=== PATIENT | female | born 1945 | race Hispanic/Latino ===

== ENCOUNTER 2016-10-13 16:07 | Observation (INO) | payer SELFPAY ==
[~2016-10-13] VITALS: Ht 152.4 cm; Wt 64.3 kg
--- NOTE | 2016-10-13 16:28 | ED.REPORT ---
HPI-Chest Pain 40 and Over Date of Service Oct 13, 2016 ED Provider: Dr. Jacek Jalloh MD A 71 year old female with a history of hypertension presents to the ED via EMS with heart palpitations that began just prior to arrival. Associated symptoms include visual disturbances, headache, dizziness, chest pain, and one episode of emesis. The patient has experienced similar symptoms during her previous hypertensive episodes. En route, EKG revealed a narrow complex with a rate in the 180's. She cardioverted to normal sinus following 6 mg of Adenosine. The patient has also been experiencing a sore throat for the past week. Patient denies any recent fever, chills, or dysuria. She denies history of thyroid disease. Nursing Notes Stated Complaint: ARRHYTHMIA Chief Complaint: Dysrhythmia/Cardiac Nursing Notes Reviewed: Yes Allergies: Coded Allergies: No Known Allergies (Unverified , 10/13/16) No Active Prescriptions or Reported Meds General Time Seen by MD: 16:28 Chief Complaint Other (Heart Palpitations) Hx Obtained From: Patient Arrived By: Ambulance Sudden in Onset?: No Onset Occurred: Just prior to arrival Symptom Duration: Since onset Associated with: Reports: Palpitations Pertinent Negative: Pt denies other symptoms Recent Healthcare: No recent doctor visit, No recent hospitalization Risk Factors )( CAD Risk Stratification Risk factors reviewed )( TAD Risk Stratification Risk factors reviewed )( PE Risk Stratification Risk factors reviewed Past Medical History Past Medical History Hypertension Previous infarct Past Surgical History None reported. Family History Non-contributory Denies history of cardiac disease Smoking History Unknown if Ever Smoker Social History Other Social History: Good social support, Local resident Ambulatory Status Independent Review of Systems Constitutional: Denies: Chills, Fever Cardiovascular: Reports: Chest pain, Palpitations GI: Reports: Vomiting Neurologic: Reports: Dizziness, Headache, Vision change Complete sys rev & neg: except as marked. Ears / Nose / Throat: Reports: Sore throat Female: Denies: Dysuria Physical Exam Initial Vital Signs Vital Signs (First) Date Time Temp Pulse Resp B/P Pulse Ox O2 Delivery O2 Flow Rate FiO2 10/13/16 16:29 36.6 91 22 134/77 97 Room Air Initial VS: Reviewed Head / Eyes: Atraumatic, Normocephalic, PERRL Neck: Supple, Non-tender, Full range of motion Extremities: Vascular intact, Neuro intact, No swelling, No tenderness Skin: Warm, Dry, No cyanosis Neurologic: Alert, Oriented, Nonfocal Psychiatric: Mood/affect normal, Behavior normal, Normal thought content General/Constitutional: Awake, Alert, No acute distress Respiratory / Chest: Atraumatic, Breath sounds NL, Breath sounds = bilat, No respiratory distress Cardiovascular: Heart rate NL, Regular rhythm, Heart sounds NL Abdomen: Atraumatic, Soft, Non-tender Interpretation & Diagnostics Lab Results Interpretation Result Diagram: 10/13/16 1629 10/13/16 1629 Test 10/13/16 16:29 10/13/16 19:39 White Blood Count 7.4th/mm3 (3.8-10.1) Red Blood Count 4.58mil/mm3 (3.90-5.20) Hemoglobin 13.4g/dL (12.0-15.6) Hematocrit 40.2% (35.0-46.0) Mean Corpuscular Volume 87.8fL (81-100) Mean Corpuscular Hemoglobin 29.3pg (27.0-35.0) Mean Corpuscular Hemoglobin Concent 33.3% (32.0-37.0) Red Cell Distribution Width 13.9% (12.3-15.4) Platelet Count 241bil/L (150-400) Neutrophils (%) (Auto) 71.1% (40-74) Lymphocytes (%) (Auto) 21.5% (14-46) Monocytes (%) (Auto) 4.8% (4-12) Eosinophils (%) (Auto) 2.2% (0-5) Basophils (%) (Auto) 0.3% (0-3) Sodium Level 140mEq/L (134-144) Potassium Level 3.9mEq/L (3.5-5.2) Chloride Level 103mEq/L (97-108) Carbon Dioxide Level 21mmol/L (18-29) Blood Urea Nitrogen 13mg/dL (8-27) Creatinine 0.59mg/dL (0.57-1.00) Estimat Glomerular Filtration Rate 144mL/min (>59) Glucose Level 114mg/dL (60-99) Calcium Level 9.0mg/dL (8.5-10.1) Magnesium Level 2.0mg/dL (1.6-2.6) Total Bilirubin 0.2mg/dL (0.0-1.2) Aspartate Amino Transf (AST/SGOT) 20U/L (0-50) Alanine Aminotransferase (ALT/SGPT) 10U/L (0-32) Alkaline Phosphatase 75U/L (25-165) Total Protein 7.6g/dL (6.4-8.4) Albumin 4.1g/dL (3.4-5.0) Troponin T 0.071ug/L (0.0-0.011) Pulse Oximetry Interpretation Pulse Oximetry: Pulse Ox normal (97%), On room air ECG Interpretation ECG Interpretation: Sinsu rhythm Rate 80 bpm Time: 16:38 Interpreted by: ED physician Rhythm Strip Interpretation : Time: 16:52 Rhythm Strip Interpretation: Interpreted by me, Rate (80 bpm), Normal sinus rhythm X-Ray Chest Interpretation Chest Xray Interpretation: IMPRESSION: Left basilar infiltrate. A lateral view is recommended. Dictated by: Shirin Mcmillan M.D. on 10/13/2016 at 16:47 Interpretation / Wet Read by: Interpret - Radiologist Re-Eval/Medical Decision Time of Eval: 17:03 Patient Status: Condition improved Re-Evaluation/Progress Note: Patient condition is re-evaluated. symptoms have improved following treatment. Patient passes the road test. She is informed of her current results and the intended treatment plan. All of the patient's questions about her likely diagnosis and disposition are addressed. Time of Eval: 20:37 Patient Status: Condition improved Re-Evaluation/Progress Note: Patient is informed of her elevated troponin and the plan to admit. She understands and agree with the plan. Code status is discussed in the presence of family. Patient would like to be Full Code. Consultation #1: Referral / Consult Name: Scout Dhillon MD Consulted With: Cardiology Call Returned at: 19:40 Airplane Technician: Agrees with eval, Agrees with plan Note: Discussed patient condition. Agrees with the intended treatment plan. Consultation #2: Referral / Consult Name: Gaviota Olivier DO Consulted With: [employer] Call Returned at: 21:25 Airplane Technician: Will see patient, Agrees with eval, Agrees with plan, Accepts admit Counseled Regarding: Diagnosis, Lab results, Need for admission Discharge & Departure Primary Impression: Supraventricular tachycardia Additional Impression: Elevated troponin Disposition: ADMITTED TO HOSPITAL Discharge Condition All VS Reviewed: Yes Condition: Stable Referrals: Jamie Jaffe MD [facility] Scribe Attestation Portions of this note were transcribed by Lizbeth Mccord. Dr. Shubham Fofana personally performed the history, physical exam and medical decision-making; I reviewed and confirmed the accuracy of the information in the transcribed note. Jacek Jalloh DO Oct 13, 2016 16:28 LIZBETH MCCORD Oct 13, 2016 16:31 Por favor volver al servicio de urgencias para cualquier nuevas o que empeora las condiciones incluyendo cualquier fiebre, escalofros, nuseas, vmitos, dolor en el pecho, dificultad para respirar, sudoracin excesiva, mareos, debilidad o cualquier otro referente a los sntomas. Referrals: Jamie Jaffe MD [facility] Scribe Attestation Portions of this note were transcribed by Lizbeth Mccord. IDr. Jalloh personally performed the history, physical exam and medical decision-making; I reviewed and confirmed the accuracy of the information in the transcribed note. Jacek Jalloh DO Oct 13, 2016 16:28 LIZBETH MCCORD Oct 13, 2016 16:31
[2016-10-13 16:29] VITALS: BP 134/77; PULSE 91; RESP 22; O2SAT 97
[2016-10-13 16:40] LABS: BASOPHILS % (AUTO) 0.3 % (0-3); EOSINOPHILS % (AUTO) 2.2 % (0-5); MONOCYTES % (AUTO) 4.8 % (4-12); Mean Corpuscular Hemoglobin 29.3 pg (27.0-35.0); Mean Corpuscular Volume 87.8 fL (81-100); NEUTROPHILS % (AUTO) 71.1 % (40-74); Platelet Count 241 bil/L (150-400)
--- NOTE | 2016-10-13 16:50 | DRSVH ---
PROCEDURE: X-RAY CHEST ONE VIEW, PORTABLE ([id number]) INDICATIONS: DYSRHYTHMIA/CHEST PAIN TECHNIQUE: One view of the chest was acquired. COMPARISON: None. FINDINGS: Surgical changes and devices: None. Lungs and pleura: Left basilar opacity may be infiltrate. No pleural effusions or pneumothorax. Mediastinum: Mediastinal contours appear normal. Heart size is normal. Bones and chest wall: No suspicious bony lesions. Overlying soft tissues appear unremarkable. IMPRESSION: ? Left basilar infiltrate. A lateral view is recommended. Dictated by: Shirin Mcmillan M.D. on 10/13/2016 at 16:47 Approved by: Shirin Mcmillan M.D. on 10/13/2016 at 16:48
[2016-10-13 17:05] LABS: TROPONIN T < 0.010 ug/L (0.0-0.011)
--- NOTE | 2016-10-13 17:39 | DRSVH ---
PROCEDURE: X-RAY CHEST ONE VIEW ([id number]) INDICATIONS: 71 year-old female with supraventricular tachycardia and chest pain, and possible left l lluvia base opacity on single view chest. TECHNIQUE: Lateral view of the chest was acquired. COMPARISON: [facility], CR, XR CHEST 1VW (PORTABLE), 10/13/2016, 16:17. FINDINGS: Surgical changes and devices: None. Lungs and pleura: No pleural effusions or pneumothorax. Lungs are clear. Mediastinum: Mediastinal contours appear normal. Heart size is normal. Bones and chest wall: No suspicious bony lesions. Overlying soft tissues appear unremarkable. IMPRESSION: No acute cardiopulmonary disease. Specifically, left lung base appears clear. Dictated by: Faisal Cisse M.D. on 10/13/2016 at 17:37 Approved by: Faisal Cisse M.D. on 10/13/2016 at 17:38
[2016-10-13 19:37] VITALS: BP 128/65; PULSE 77; RESP 17; O2SAT 98
[2016-10-13 22:19] VITALS: BP 135/71; PULSE 74; RESP 16; O2SAT 97
[2016-10-13] MEDS ORDERED: Senna-Docusate 8.6-50 mg Tablet PO PRN (22:40)
[2016-10-13] MEDS ORDERED: Ondansetron 2 mg/mL 2 mL Inj IVPUSH PRN (22:40)
[2016-10-13] MEDS ORDERED: Atropine 1 mg/10 mL (Code) Syringe IVPUSH PRN (22:40)
[2016-10-13] MEDS ORDERED: Polyethylene Glycol (PEG) 17 Gm Powder PO PRN (22:40)
[2016-10-13] MEDS ORDERED: Alum-Mag Hydrox-Simeth 30 mL Suspension PO PRN (22:40)
[2016-10-13] MEDS: 0.9% Sodium Chloride 1,000 ML IV SCH (22:56)
[2016-10-13] MEDS ORDERED: Piperacillin-Tazo 3.375 Gm Inj 3.375 GM in Dextrose 5% Minibag Plus 50 ML IV ONE (23:05)
[2016-10-13] MEDS: Sodium Chloride LOK Flush 10 mL Syringe IVFLUSH SCH (23:32)
--- NOTE | 2016-10-13 23:36 | PCM.HPMED ---
Subjective Date of Service Oct 13, 2016 Primary Provider: Admitting Physician: Gaviota Olivier DO Primary Care Physician: Khadra Attending Physician: Gaviota Olivier DO Chief Complaint: Palpitations, dizziness, shortness of breath, nausea History of Present Illness: Augustina Zhang is a 71-year-old woman with history of hypertension and myocardial infarction one year ago who experienced sensation of lightheadedness dizziness, chest palpitations, nausea, shortness of breath and blurry vision earlier this afternoon. EMS was summoned and she was found to have a narrow complex supraventricular tachycardia received 6 mg of adenosine, and converted to normal sinus rhythm en route. In the emergency department she was stable, normal blood pressure, remained in sinus rhythm, initial troponin was negative, recheck troponin returned elevated at 0.071. She recently relocated from [place] to the area couple of weeks ago to live with family, she is accompanied by her son and . She reports her doctor in [place] had her on medications for 1 month following her SC, and is now on an unknown blood pressure medication that she takes only "when she needs it." The symptoms she experienced she equated with hypertensive event, she does not believe she has had SVT before. At time of admission she is fully asymptomatic. On presentation to the emergency department: 36.6, 91, 22, 134/77, 97% on room air, heart rate and respiratory rate decreased to 74 and 16 respectively. Hematology unremarkable, chemistry unremarkable, repeat troponin 0.071 EKG heart rate 80, sinus, normal axis, no signs of acute ischemia or infarct, NJ 119, QTC 446. Chest x-ray did not show any abnormalities. Patient received 324 mg aspirin and 12.5 mg Lopressor in the emergency department. She was being prepared to be discharged home with follow-up with primary care, repeat troponin was elevated, with history of hypertension and prior SC patient was admitted for further evaluation and monitor on telemetry overnight. Review of Systems: A comprehensive review of systems was conducted with the patient and found to be negative except as above in the history of presenting illness. Allergies Coded Allergies: No Known Allergies (Unverified , 10/13/16) Home Medications Unknown medication for blood pressure PMH Myocardial infarction Chronic hypertension Surgical History Denies any surgeries of any kind Family History Mother-alive at 98 years old, chronic abdominal pain Father from liver cancer, drank alcohol Social History Hx Alcohol Use: No Hx Substance Use: No Hx Tobacco Use: No Smoking Status: Never Smoker Living Arrangement: with Family Exam Vital Signs Vital Sign - Last Date Time Temp Pulse Resp B/P Pulse Ox O2 Delivery O2 Flow Rate FiO2 10/13/16 22:19 36.8 74 16 135/71 97 Room Air Exam General: Laying in bed, no apparent distress, HEENT: Normocephalic, atraumatic, EOMI grossly, mucous membranes moist, neck supple without lymphadenopathy, conjunctiva pink Cardiovascular: Regular rate and rhythm, no clicks murmurs rubs, peripheral pulses 2/4 equal bilaterally Pulmonary: Clear to auscultation bilaterally, no W/R/R. Abdominal: Soft to palpation, bowel sounds present 4, no hepatosplenomegaly. Negative rebound. No pulsating masses Extremities: No edema appreciated. No tenderness, asymmetry. Neuro: Neurologically grossly intact, strength is equal bilaterally upper and lower extremities. MSK: Able to move extremities on their own volition, strength 5 out of 5 equal bilaterally to upper and lower extremities. Psych: Appropriate mood and affect Lab and Diagnostics Result Diagram: 10/13/16 1629 10/13/16 1629 X-Rays, CTs and MRIs Chest x-ray performed 10/13/2016 IMPRESSION: No acute cardiopulmonary disease. Specifically, left lung base appears clear. Dictated by: Faisal Cisse M.D. on 10/13/2016 at 17:37 12-lead ECG EKG heart rate 80, sinus, normal axis, no signs of acute ischemia or infarct, NJ 119, QTC 446. Assessment & Plan 71-year-old woman with history of hypertension and myocardial infarction not on any regular medications experienced palpitations, shortness of breath, dizziness , found to be having a SVT, cardioverted with 6 mg of adenosine, remained normal sinus rhythm, had subsequent elevated troponin, admitted for ongoing evaluation for cardiac ischemia. Elevated troponin, present on admission, active Elevated troponin following tachycardic dysrhythmia, elevated from negative to 0.079 in the emergency department possibly secondary to demand ischemia History of myocardial infarction EKG was normal without ischemic change (reviewed on admission) Received aspirin 324 mg, Continue with 81 mg daily IV fluids, 100 mL per hour normal saline Start atorvastatin 80 mg by mouth Metoprolol 12.5mg BID Lipid panel ordered Plavix 75 mg by mouth daily Continue to trend troponin Cardiology consultation, recs appreciated AM ECHO Acute Narrow complex SVT, resolved by admission, stable Rhythm strips available in chart, rate 180-200 beats per minute, narrow complex , responsive to adenosine, given metoprolol in the emergency department, stable. Continue to monitor on telemetry Metoprolol 12.5 mg twice a day Cardiology consultation Chronic hypertension, present on admission, stable Blood pressure has not been elevated over 140 mmHg Continue to monitor with every 4 vitals Metoprolol as above Family to bring in bottle of unknown hypertensive medication tomorrow Patient is admitted to inpatient status with anticipated length of stay greater than 2 midnights, based on complexity of diagnosis, plan of treatment, and risk of adverse events. GI prophylaxis not indicated DVT prophylaxis with subcutaneous heparin Pain management with nitroglycerin, morphine, acetaminophen CODE STATUS: FULL CODE, discussed with patient and family bedside. Pain Evaluation: Adequate Pain Control GI Prophylaxis: Not indicated VTE Prophylaxis: Sub-Q Heparin (Unfractionated) Resuscitation Status: CPR: Attempt Resuscitation Attending Statement The patient was seen and examined together with house staff on 10/13/2016 and I agree with the history, exam and plan as outlined in the note above. Sravan Morton DO Oct 13, 2016 23:35 Gaviota Olivier DO Oct 14, 2016 03:09
[2016-10-14] MEDS: Heparin 5,000 Unit/mL Inj SUBQ SCH ×2 (00:23→07:45)
[2016-10-14 00:49] LABS: Magnesium 2.2 mg/dL (1.6-2.6); TROPONIN T 0.049 ug/L (0.0-0.011)
[2016-10-14 03:40] VITALS: BP 116/74; PULSE 58; RESP 15; O2SAT 98
[2016-10-14 04:31] LABS: BASOPHILS % (AUTO) 0.3 % (0-3); EOSINOPHILS % (AUTO) 2.9 % (0-5); MONOCYTES % (AUTO) 6.5 % (4-12); Mean Corpuscular Hemoglobin 29.2 pg (27.0-35.0); Mean Corpuscular Volume 87.5 fL (81-100); NEUTROPHILS % (AUTO) 51.8 % (40-74); Platelet Count 226 bil/L (150-400)
[2016-10-14 04:51] LABS: TROPONIN T 0.026 ug/L (0.0-0.011)
[2016-10-14 06:04] VITALS: PULSE 65
--- NOTE | 2016-10-14 06:32 | NUR ---
Admit Admitted to 2030 from ED. Able to ambulate on arrival and void. NS @ 100ml/hr initiated per orders. Tele SR w/o c/o CP or discomfort. RA w/o SOB. Denies n/v or issues with PO intake but currently NPO. Son in room and able to interpret for patient as she is Icelandic speaking only. Personal belongings at bedside per patient request. Oriented to call light use and using for needs.
[2016-10-14 07:38] VITALS: BP 141/74; PULSE 63; RESP 12; O2SAT 97
[2016-10-14] MEDS: Sodium Chloride LOK Flush 10 mL Syringe IVFLUSH SCH (07:46)
[2016-10-14] MEDS: 0.9% Sodium Chloride 1,000 ML IV SCH (07:49)
[2016-10-14 09:59] VITALS: PULSE 52
[2016-10-14 12:52] VITALS: BP 122/76; PULSE 53; RESP 16; O2SAT 99
--- NOTE | 2016-10-14 14:01 | DRSVH ---
[facility] [address] [place] [address] Echocardiogram Report Name: AMOS CHANDLER Study Date: 10/14/2016 Height: 60 in Hospital Exam Location: [facility] Weight: 142 lb Gender: Female BSA: 1.6 m2 : 1945 Age: 71 yrs BP: 141/74 mm Hg Reason For Study: Chest pain Ordering Physician: Bogdan BrittistPerformed By: Alistair Barnett Referring Physician: LUNA COSTA Interpretation Summary The left ventricle is normal in size, wall thickness, and systolic function without any focal wall motion abnormalities with the ejection fraction visually estimated to be 60-65%. Assessment of diastolic parameters indicates a relaxation abnormality of the left ventricle, consistent with normal filling pressures. The right ventricle grossly appears normal in size with probable normal systolic function. The right ventricular systolic pressure is estimated at 21 mmHg assuming a right atrial pressure of 3 mm Hg. Both atria are normal in size. There is no significant valvular heart disease. Procedure: A two-dimensional transthoracic echocardiogram with color flow and Doppler was performed. The study quality was technically adequate. There is no prior echocardiogram noted for this patient. The patient was in sinus bradycardia with heart rates between 51-63 bpm during the exam. Left Ventricle: The left ventricle is normal in size, wall thickness, and systolic function without any focal wall motion abnormalities. The ejection fraction is estimated to be 60-65%. Assessment of diastolic parameters indicates a relaxation abnormality of the left ventricle, consistent with normal filling pressures. Right Ventricle: The right ventricle grossly appears normal in size with probable normal systolic function. Atria: Both atria are normal in size. The interatrial septum is intact with no evidence for an atrial septal defect. Mitral Valve: The mitral valve is grossly normal. There is trace mitral regurgitation. Aortic Valve: The aortic valve is normal in structure and function. The aortic valve is trileaflet. The aortic valve opens well. No aortic regurgitation is present. Tricuspid Valve: The tricuspid valve is not well visualized, but is grossly normal. There is trace tricuspid regurgitation. The right ventricular systolic pressure is estimated at 21 mmHg assuming a right atrial pressure of 3 mm Hg. Pulmonic Valve: The pulmonic valve is not well visualized. There is no significant valvular heart disease. Great Vessels: The aortic root is normal size. The dimensions of the ascending aorta are normal. The pulmonary artery is not well visualized, but is probably normal size. The IVC is of normal diameter and collapses greater than 50% with a sniff. This suggests a low right atrial pressure of 3 mm Hg. Pericardium/ Pleura There is no pericardial effusion. There is no pleural effusion. MMode/2D Measurements & Calculations LVIDd: 4.5 cm RA long axis LVOT diam: 1.7 cm LVIDs: 2.6 cm LA A2 area: 14.4 cm Ao root diam FS: 42.2 % LA A4 area: 16.1 cm RA area EPSS: 0.54 cm LA length (vol) asc Aorta Diam IVSd: 0.91 cm : 15.8 cm LVPWd: 0.70 cm LA vol: 40.5 ml RA vol Ao Arch Diam (Prox LA vol index : 45.8 ml Trans): 2.3 cm RA : 28.4 mm2 IVC diam: 2.0 cm LV [place]. diameter/BSA LV sys. diameter/BSA RVD1 (basal) TAPSE: 1.6 cm (cm/m^2): 2.8 (cm/m^2): 1.6 Doppler Measurements & Calculations Ao V2 max: 143.3 cm/secMV E max joseph MV E/A: 0.88 TR max joseph Ao max P.2 mmHg : 79.0 cm/sec Med Peak E' Joseph : 214.6 cm/sec Ao mean P.2 mmHg MV A max joseph TR max PG LVOT Max Joseph : 89.5 cm/sec E/E' med: 11.4 : 18.4 mmHg : 96.2 cm/sec Lat Peak E' Joseph PA V2 max : 65.6 cm/sec TED(I,D): 1.7 cm E/E' lat: 9.4 PA mean PG sev ratio: 0.73 E/e' average : 0.80 mmHg MV dec time: 0.20 sec Ao V2 mean LV V1 max PG PA V2 mean : 96.8 cm/sec : 42.3 cm/sec Ao V2 VTI LV V1 VTI: 24.2 cmPA pr(Accel) : -11.3 mmHg TED(V,D): 1.6 cm2 TED indexed to BSA (cm^2/m^2): 1.1 Reading Physician:02:01 PM
[2016-10-14] MEDS ORDERED: METO25TA6 PO (15:26)
[2016-10-14] MEDS ORDERED: LISI-571 PO (15:26)
[2016-10-14] MEDS ORDERED: ASPI81TA3 PO (15:26)
--- NOTE | 2016-10-14 15:26 | PCM.DIMED ---
Afshin Fonseca DO 10/14/16 1526: Discharge Instructions Date of Service Oct 14, 2016 Dates of Hospitalization Oct 13, 2016 at 21:16 Discharge Diagnosis Discharge Diagnosis Acute Narrow complex supraventricular tachycardia Elevated troponin Chronic hypertension Medication Instructions Additional med instructions The medications that we would like you to take at home are as follows: Aspirin 81 mg Metoprolol 12.5 mg twice a day Lisinopril 5 mg twice a day Los medicamentos que nos gustara que tome en casa son los siguientes: Aspirina 81 mg Metoprolol 12,5 mg dos veces al da Lisinopril 5 mg dos veces al da Test Results Test Results During your stay an echocardiogram was completed as well as 2 chest x-rays. Both x-rays show no acute disease. The echocardiogram of your heart showed a normal ejection fraction as well as other normal heart findings. Devika lorenzana estancia un ecocardiograma fue completado y 2 radiografas de trax. Ambas radiografas no muestran ninguna enfermedad aguda. El ecocardiograma del corazn mostr alise fraccin de eyeccin normal, as sary otros hallazgos normales del corazn. Diet Discharge Diet: No restrictions Activity Discharge Activity: No restrictions Call your provider Call your provider for: Fever or Chills, Shortness of breath, Bleeding, Chest pain, Vomitting, Excessive diarrhea, Weakness (unilateral) Patient Instructions Patient Instructions Please take your medications as described above. Feel free to continue your diet as before, however we encourage healthy eating, especially a diet low in fats. Continue physical activity as tolerated. Por favor tome michelle medicamentos sary se describi anteriormente. Usted puede seguir la dieta sary antes, sin embargo te animamos a comer sanamente, sobre todo alise dieta baja en grasas. Continuar la actividad fsica sary tolerado. Follow-up plan We would like you to follow-up with a primary care doctor who may make changes or recommendations to your medication regimen as needed. Queremos que mary seguimiento con un doctor de cabezera que puede hacer cambios o recomendaciones a lorenzana rgimen de medicamentos segn sea necesario. Follow-up Provider: [facility] Follow-up with PCP in: 1 week Zheng Baez MD 10/14/16 1620: Discharge Instructions Attending's Statement The patient was seen and examined together with Dr. Fonseca on 10/14/2016 and I agree with the history, exam and plan as outlined in the note above. . Afshin Fonseca DO Oct 14, 2016 15:26 Zheng Baez MD Oct 14, 2016 16:20
--- NOTE | 2016-10-14 17:35 | PCM.DC.MED ---
Discharge Summary Date of Service Oct 14, 2016 Dates of Hospitalization Date of Hospital Admission Oct 13, 2016 at 21:16 Date of Discharge: Oct 14, 2016 Providers: Admitting Physician: Gaviota Olivier DO Primary Care Physician: Khadra Attending Physician: Zheng Baez MD Diagnosis at Time of Discharge Diagnosis at Time of Discharge Acute Narrow complex supraventricular tachycardia Elevated troponin Chronic hypertension Consultations Cardiology: Dr. Wolf Procedures XRay, CTs & MRIs Chest x-ray performed 10/13/2016 IMPRESSION: No acute cardiopulmonary disease. Specifically, left lung base appears clear. Dictated by: Faisal Cisse M.D. on 10/13/2016 at 17:37 ECG 12 Lead EKG heart rate 80, sinus, normal axis, no signs of acute ischemia or infarct, KS 119, QTC 446. Cardiac Echo Impression Echocardiogram Interpretation Summary The left ventricle is normal in size, wall thickness, and systolic function without any focal wall motion abnormalities with the ejection fraction visually estimated to be 60-65%. Assessment of diastolic parameters indicates a relaxation abnormality of the left ventricle, consistent with normal filling pressures. The right ventricle grossly appears normal in size with probable normal systolic function. The right ventricular systolic pressure is estimated at 21 mmHg assuming a right atrial pressure of 3 mm Hg. Both atria are normal in size. There is no significant valvular heart disease. Reading Physician:02:01 PM Brief History Taken from H&P completed by Dr. Morton: Augustina Zhang is a 71-year-old woman with history of hypertension and myocardial infarction one year ago who experienced sensation of lightheadedness dizziness, chest palpitations, nausea, shortness of breath and blurry vision earlier this afternoon. EMS was summoned and she was found to have a narrow complex supraventricular tachycardia received 6 mg of adenosine, and converted to normal sinus rhythm en route. In the emergency department she was stable, normal blood pressure, remained in sinus rhythm, initial troponin was negative, recheck troponin returned elevated at 0.071. She recently relocated from [place] to the area couple of weeks ago to live with family, she is accompanied by her son and . She reports her doctor in [place] had her on medications for 1 month following her MT, and is now on an unknown blood pressure medication that she takes only "when she needs it." The symptoms she experienced she equated with hypertensive event, she does not believe she has had SVT before. At time of admission she is fully asymptomatic. On presentation to the emergency department: 36.6, 91, 22, 134/77, 97% on room air, heart rate and respiratory rate decreased to 74 and 16 respectively. Hematology unremarkable, chemistry unremarkable, repeat troponin 0.071 EKG heart rate 80, sinus, normal axis, no signs of acute ischemia or infarct, KS 119, QTC 446. Chest x-ray did not show any abnormalities. Patient received 324 mg aspirin and 12.5 mg Lopressor in the emergency department. She was being prepared to be discharged home with follow-up with primary care, repeat troponin was elevated, with history of hypertension and prior MT patient was admitted for further evaluation and monitor on telemetry overnight. Hospital Course 71-year-old woman with history of hypertension and myocardial infarction not on any regular medications experienced palpitations, shortness of breath, dizziness , found to be having a SVT, cardioverted with 6 mg of adenosine, remained normal sinus rhythm, had subsequent elevated troponin, admitted for ongoing evaluation for cardiac ischemia. Elevated troponin, present on admission, active Elevated troponin following tachycardic dysrhythmia, elevated from negative to 0.079 in the emergency department likely secondary to demand ischemia History of myocardial infarction (one year) EKG was normal without ischemic change Continue with aspirin 81 mg daily IV fluids, 100 mL per hour normal saline Continue Metoprolol 12.5mg BID Lipid panel negative Troponins trending down Echo ejection fraction 60-65% other results as above Cardiology consultation, recommendations metoprolol and lisinopril with close follow-up from PCP Acute Narrow complex SVT, resolved by admission, stable Rhythm strips available in chart, rate 180-200 beats per minute, narrow complex , responsive to adenosine, given metoprolol in the emergency department, stable. Metoprolol 12.5 mg twice a day Lisinopril 5 mg twice a day Cardiology consultation Chronic hypertension, present on admission, stable Blood pressure has not been elevated over 140 mmHg Continue metoprolol and lisinopril Exam Vital Signs (Last) Date Time Temp Pulse Resp B/P Pulse Ox O2 Delivery O2 Flow Rate FiO2 10/14/16 12:52 36.7 53 16 122/76 99 Room Air Exam General: No acute distress, well-developed, well-nourished Head: Normocephalic, atraumatic. External ears without defect. Eyes: Pupils equal, round, and reactive to light and accommodation. Anicteric sclerae, moist conjunctivae. Neck: Normal range of motion, no lymphadenopathy noted Cardiovascular: Regular rate and rhythm with no murmurs, rubs, or gallops appreciated Pulmonary: Clear to auscultation bilaterally with no crackles, wheezes, or rhonchi. Normal respiratory effort with no use of accessory muscles. Abdomen: Bowel tones present. Soft, obese nontender, nondistended. Extremities: No clubbing, cyanosis, edema Skin: Normal temperature, turgor, and texture; no rash, ulcers, or subcutaneous nodules appreciated. Neurological: Cranial nerves grossly intact. Reflexes, coordination, and sensory function within normal limits. Normal muscle strength, tone, and bulk. Psychiatric: Normal mood and affect. Alert and oriented to person, place, and time Test 10/13/16 16:29 10/13/16 23:47 10/14/16 04:20 Total Bilirubin 0.2mg/dL (0.0-1.2) Aspartate Amino Transf (AST/SGOT) 20U/L (0-50) Alanine Aminotransferase (ALT/SGPT) 10U/L (0-32) Alkaline Phosphatase 75U/L (25-165) Total Protein 7.6g/dL (6.4-8.4) Albumin 4.1g/dL (3.4-5.0) Magnesium Level 2.2mg/dL (1.6-2.6) Thyroid Stimulating Hormone (TSH) 2.680uIU/mL (0.450-4.500) White Blood Count 6.6th/mm3 (3.8-10.1) Red Blood Count 4.25mil/mm3 (3.90-5.20) Hemoglobin 12.4g/dL (12.0-15.6) Hematocrit 37.2% (35.0-46.0) Mean Corpuscular Volume 87.5fL (81-100) Mean Corpuscular Hemoglobin 29.2pg (27.0-35.0) Mean Corpuscular Hemoglobin Concent 33.3% (32.0-37.0) Red Cell Distribution Width 14.0% (12.3-15.4) Platelet Count 226bil/L (150-400) Neutrophils (%) (Auto) 51.8% (40-74) Lymphocytes (%) (Auto) 38.3% (14-46) Monocytes (%) (Auto) 6.5% (4-12) Eosinophils (%) (Auto) 2.9% (0-5) Basophils (%) (Auto) 0.3% (0-3) Sodium Level 142mEq/L (134-144) Potassium Level 4.0mEq/L (3.5-5.2) Chloride Level 106mEq/L (97-108) Carbon Dioxide Level 23mmol/L (18-29) Blood Urea Nitrogen 11mg/dL (8-27) Creatinine 0.57mg/dL (0.57-1.00) Estimat Glomerular Filtration Rate 150mL/min (>59) Glucose Level 99mg/dL (60-99) Calcium Level 8.6mg/dL (8.5-10.1) Troponin T 0.026ug/L (0.0-0.011) Triglycerides Level 59mg/dL (0-149) Cholesterol Level 174mg/dL (100-199) LDL Cholesterol, Calculated 104.200mg/dL (0-99) VLDL Cholesterol 11.800mg/dL HDL Cholesterol 58mg/dL (>39) Cholesterol/HDL Ratio 3.00 (0.0-4.4) Discharge Medications Discharge Medications Aspirin Chew (Aspirin Chew) 81 Mg Chew 81 MG PO DAILY Prescribed by: AFSHIN MACKEY DO Lisinopril (Lisinopril) 5 Mg Tablet 5 MG PO BID Prescribed by: AFSHIN MACKEY DO Metoprolol Tartrate (Metoprolol Tartrate) 25 Mg Tablet 12.5 MG PO BID Prescribed by: AFSHIN MACKEY DO Additional med instructions The medications that we would like you to take at home are as follows: Aspirin 81 mg Metoprolol 12.5 mg twice a day Lisinopril 5 mg twice a day Los medicamentos que nos gustara que tome en casa son los siguientes: Aspirina 81 mg Metoprolol 12,5 mg dos veces al da Lisinopril 5 mg dos veces al da Followup Plan Disposition: Home Follow-up plan We would like you to follow-up with a primary care doctor who may make changes or recommendations to your medication regimen as needed. Queremos que mary seguimiento con un doctor de cabezera que puede hacer cambios o recomendaciones a lorenzana rgimen de medicamentos segn sea necesario. Discharge Diet: No restrictions Discharge Activity: No restrictions Patient Instructions Please take your medications as described above. Feel free to continue your diet as before, however we encourage healthy eating, especially a diet low in fats. Continue physical activity as tolerated. Por favor tome michelle medicamentos sary se describi anteriormente. Usted puede seguir la dieta sary antes, sin embargo te animamos a comer sanamente, sobre todo alise dieta baja en grasas. Continuar la actividad fsica sary tolerado. Follow-up Provider: [facility] Follow-up with PCP in: 1 week Time spent Greater than 30 minutes was spent in preparation of discharge with greater than 50% of that time dedicated to patient counseling and coordination of care. . Attending Statement The patient was seen and examined together with Dr. Mackey on 10/14/2016 and I agree with the history, exam and plan as outlined in the note above. . copies to: [facility] Afshin Mackey DO Oct 14, 2016 17:35 Zheng Baez MD Oct 14, 2016 17:42
--- NOTE | 2016-10-14 17:39 | NUR ---
Discharge Pt discharged home with family today at ~1620. Pt given discharge educational materials in Turkmen on SVT and new prescriptions. Pt instructed to f/u with [facility] in 1 week, number supplied. Pt's IV access D/C'd and intact. Pt and family at bedside verbalized understanding of all discharge instructions. All belongings accompanied Pt at time of discharge.
--- NOTE | 2016-10-14 18:30 | NUR ---
Social Work Note: Initial Assessment/Discharge Data& Assessment: EMR reviewed. Augustina Zhang is a 71 year old female admitted on 10/13/2016 for tachydysrythmia with C.P. Per MD in multidisciplinary rounds, pt is medically improved and ready for discharge. [employer] met with pt and pt family at bedside to confirm discharge plan and asses for any unmet needs, [employer] role explained and discharge planning checklist packet provided. Pt lives in [place] with her son and is independent at baseline with all ADL's and does not require any DME. Pt does not have HH or SNF hx. Pt does not have LTC insurance or VA benefits. Pt does not have insurance. [employer] provided pt with financial intern application. Pt son to transport pt home today. Pt and pt family denies any other needs. MD does not identify any concerns with pt capacity for self care. No other discharge needs or MD orders identified. Plan: Per MD pt is medically ready to discharge home via POV. Pt and pt family denies any other needs. No other discharge needs or MD orders identified. JAMES Gleason Addendum: 10/14/16 at 1834 by LISSETT CONNELLY Amended: Links added.
== END 2016-10-14 16:20 | disposition home or self-care (01) ==
LOC: SED 16:07 → EDBD 16:07 → INTOOBSV 21:16 → PCC 21:16 → OBSVTOIN 21:16 → PCC 22:10
PROVIDERS: ADMIT Internal Medicine; ATTEND Internal Medicine
DX: R79.89 Other specified abnormal findings of blood chemistry (principal); I10 Essential (primary) hypertension; I25.2 Old myocardial infarction; I47.1 Supraventricular tachycardia
CPT/HCPCS: 36415; 71010; 80048; 80053; 80061; 83036; 83735; 84443; 84484; 85025; 93005; 96372; 99285; C8929; G0378; J1644; J7030